=== PATIENT | male | born 1950 | race Caucasian/White ===

== ENCOUNTER 2017-03-27 19:36 | Emergency (ER) | payer OTHER ==
[~2017-03-27] VITALS: Ht 180.3 cm; Wt 118.9 kg
[~2017-03-27 19:36] MED LIST: ALLO300T2 PO; CARV3.125 PO; FOLI1 PO; ULTR50TA PO; ZOCO40TA PO
[2017-03-27 19:43] VITALS: BP 150/70; PULSE 69; RESP 16; TEMP 97.7; O2SAT 94
[2017-03-27 20:01] VITALS: BP 150/70; PULSE 69; RESP 16; TEMP 97.7; O2SAT 94
[2017-03-27] MEDS ORDERED: CETI-1 PO (20:10)
[2017-03-27] MEDS ORDERED: FOLI1TAB6 PO (20:10)
[2017-03-27] MEDS ORDERED: AMLO2.5T PO (20:10)
[2017-03-27] MEDS ORDERED: GABA300C5 PO (20:10)
[2017-03-27] MEDS ORDERED: SIMV20TA PO (20:10)
[2017-03-27] MEDS ORDERED: ALLO300T2 PO (20:10)
[2017-03-27] MEDS ORDERED: CARV3.12 PO (20:10)
--- NOTE | 2017-03-27 20:20 | PD ---
HPI Chief Complaint: Edema Time Seen by Provider: 20:03 Travel History International Travel<30 days: No Contact w/Intl Traveler<30days: No Traveled to known affect area: No History of Present Illness HPI 66 year-old male presents to the emergency department by private transportation the care of his spouse for evaluation of left lower extremity pain redness and swelling. Patient returned from a 1 week cruise 2 weeks ago and over the past 3 weeks has noticed persistent swelling and pain in the left lower extremity. Patient complains of redness and tenderness to the distal medial aspect of the left lower extremity. Patient has had these symptoms before. Patient has not followed up with his primary care provider over the last 2 weeks while at home. Patient denies any claudication. Patient states this week he's walk daily 2 miles per day without any cramping or discomfort that causes him to decrease his activity to rest and does not notice increased discomfort with extremity elevation. No prior history of claudication or peripheral vascular disease. Patient does have history of hypertension and dyslipidemia as well as previous colorectal cancer status post chemotherapy and colostomy. Patient denies any fever intermittently has chills. Patient's had no nausea no vomiting no abdominal pain no cramping no diarrhea. There is no ascending erythema or medial upper leg tenderness. Patient has not noticed any left groin lymphadenopathy. Patient was referred to the emergency department to have an ultrasound reportedly by his primary care provider. Also primary care provider has referred him to a vascular surgeon. Patient rates his discomfort 6/10 intensity. Patient is unable to identify exacerbating or alleviating factors. Patient is not diabetic. PFSH Past Medical History Narrative Medical Hypertension dyslipidemia peripheral neuropathy gouty arthritis colorectal cancer with colectomy colostomy and completion of chemotherapy; occasional alcohol use; nursing notes reviewed Cancer: Yes (prostate, colon) High Cholesterol: Yes Chemotherapy: Yes Diminished Hearing: No Gout: Yes Hypertension: Yes Implanted Vascular Access Dvce: Yes (right port) Radiation Therapy: Yes Past Surgical History Abdominal Surgery: Yes (colostomy) Social History Alcohol Use: Yes Tobacco Use: No Allergies-Medications (Allergen,Severity, Reaction): Coded Allergies: Sulfa (Verified Allergy, Severe, Hives, 03/27/17) Reported Meds & Prescriptions Reported Meds & Active Scripts Active Reported Zyrtec (Cetirizine HCl) 10 Mg Tablet 10 Mg PO DAILY Folic Acid 1 Mg Tablet 1 Mg PO DAILY Amlodipine (Amlodipine Besylate) 2.5 Mg Tab 2.5 Mg PO DAILY Gabapentin 300 Mg Cap 300 Mg PO TID Simvastatin 20 Mg Tab 20 Mg PO DAILY Carvedilol 3.125 Mg Tab 3.125 Mg PO BID Allopurinol 300 Mg Tab 300 Mg PO DAILY Review of Systems Except as stated in HPI: all other systems reviewed are Neg General / Constitutional: Positive: Chills, No: Fever HENT: No: Congestion Cardiovascular: No: Chest Pain or Discomfort Respiratory: No: Shortness of Breath, Pleuritic Pain Gastrointestinal: No: Nausea, Vomiting, Diarrhea, Abdominal Pain Genitourinary: No: Dysuria, Flank Pain Musculoskeletal: Positive: Edema, Pain (LLE), No: Myalgias, Limited ROM, Cramping Skin: No Rash, No Lumps Neurologic: No: Weakness Psychiatric: No: Anxiety Hematologic/Lymphatic: No: Lymph Node Enlargement Physical Exam Narrative GENERAL: Well-developed well-nourished obese male in no acute distress no respiratory distress SKIN: Warm and dry. HEAD: Normocephalic. EYES: No scleral icterus. No injection or drainage. NECK: Supple, trachea midline. No JVD or lymphadenopathy. CARDIOVASCULAR: Regular rate and rhythm without murmurs, gallops, or rubs. RESPIRATORY: Breath sounds equal bilaterally. No accessory muscle use. GASTROINTESTINAL: Abdomen soft, non-tender, nondistended. MUSCULOSKELETAL: No cyanosis, or edema. Left lower leg area of distal lower leg hyperpigmentation erythema medial aspect increased warmth tenderness with palpable dorsalis pedis pulse brisk capillary refill less than 2 seconds per digit intact range of motion no deformity, no ascending erythema and no left groin lymphadenopathy. BACK: Nontender without obvious deformity. No CVA tenderness. Data Data Last Documented VS Vital Signs Date Time Temp Pulse Resp B/P Pulse Ox O2 Delivery O2 Flow Rate FiO2 03/27/17 20:45 64 16 152/68 94 Room Air 03/27/17 20:01 97.7 Orders Us Leg Venous Doppler (03/27/17 ) MDM Medical Decision Making Medical Screen Exam Complete: Yes Emergency Medical Condition: Yes Medical Record Reviewed: Yes Interpretation(s) US LLE: no DVT FINDINGS: There is normal compressibility of the deep venous system from the inguinal region to the proximal calf. No echogenic clot is seen in the lumen of the common femoral, femoral, popliteal, and posterior tibial veins. There is a normal response of the venous system to proximal and distal augmentation and respiration. CONCLUSION: Normal examination. Bobo Noble MD on March 27, 2017 at 21:46 Board Certified Radiologist. This report was verified electronically. Differential Diagnosis cellulitis, dvt, lipodermatosclerosis, pad; no findings for limb ischemia Narrative Course Patient without fever tachycardia or tachypnea with tenderness to left lower leg with erythema and distally medial aspect tenderness and increased warmth no ascending erythema no left groin lymphadenopathy dorsalis pedis pulses 2+ to palpation no pallor or coolness of the limb sensory exam is intact and capillary refill is brisk and less than 2 seconds per digit ultrasound of the left lower extremity has been ordered if this is negative for DVT presumptively treat for focal cellulitis with suspicion of chronic Lipodermatosclerosis of the left lower extremity. No history of findings to raise suspicion for limits ischemia at this time as patient has had no claudication as patient has palpable pulses with brisk capillary refill on a warm pink left lower extremity. @ 9:55 PM patient informed of US results and stable for outpatient follow up with his PCP this week. Diagnosis Primary Impression: Cellulitis of leg without foot, left Additional Impression: Lipodermatosclerosis Referrals: Primary Care Physician 1 day Patient Instructions: General Instructions Additional Instructions: Follow up with your PCP; call office in the AM to schedule appointment apply warm moist compresses for comfort intermittently as needed Complete antibiotic as prescribed Take as needed as tolerated per package directions acetaminophen or ibuprofen for fever 100.4 F or greater or for pain Return to the ED for any concerns Med/Other Pt SpecificInfo: Prescription(s) given Scripts Doxycycline Hyclate 100 Mg [id number] Mg PO BID #14 CAP Ref 0 Prov:Eneida Castillo MD 03/27/17 Disposition: 01 DISCHARGE HOME Condition: Stable Eneida Castillo MD Mar 27, 2017 20:19
[2017-03-27 20:45] VITALS: BP 152/68; PULSE 64; RESP 16; O2SAT 94
--- NOTE | 2017-03-27 21:49 | RADRPT ---
EXAM DATE/TIME: 03/27/2017 21:02 [facility] COMPARISON: No previous studies available for comparison. INDICATIONS : Left leg swelling. MEDICAL HISTORY : Hypercholesterolemia. Hypertension. Carcinoma, prostate. Gout. Chemotherapy. Radiation therapy . SURGICAL HISTORY : Colostomy. Right port placement. ENCOUNTER: Initial ACUITY: 3 weeks PAIN SCORE: 7/10 LOCATION: Left leg. TECHNIQUE: Venous ultrasound of the leg was performed from the inguinal ligament to the proximal calf. Real-sonia e, color Doppler and spectral tracing, compression and augmentation techniques were used. FINDINGS: There is normal compressibility of the deep venous system from the inguinal region to the proximal ca lf. No echogenic clot is seen in the lumen of the common femoral, femoral, popliteal, and posterior tibial veins. There is a normal response of the venous system to proximal and distal augmentation an d respiration. CONCLUSION: Normal examination. Bobo Noble MD on March 27, 2017 at 21:46 Board Certified Radiologist. This report was verified electronically.
[2017-03-27] MEDS ORDERED: DOXY100C PO (21:57)
== END 2017-03-27 22:18 | disposition home or self-care (01) ==
LOC: PHED 19:36
DX: L03.116 Cellulitis of left lower limb (principal); I83.12 Varicose veins of left lower extremity with inflammation; I10 Essential (primary) hypertension; E78.5 Hyperlipidemia, unspecified; Z86.69 Personal history of other diseases of the nervous system and sense organs; Z87.39 Personal history of other diseases of the musculoskeletal system and connective tissue; Z85.038 Personal history of other malignant neoplasm of large intestine
CPT/HCPCS: 93971; 99284

== ENCOUNTER 2017-07-15 08:50 | Day surgery (SDC) | payer OTHER ==
[~2017-07-15] VITALS: Ht 180.3 cm; Wt 120.9 kg
[~2017-07-15 08:50] MED LIST changes: +AMLO2.5T PO; +CARV3.12 PO; -CARV3.125 PO; +CETI-1 PO; +DOXY100C PO; -FOLI1 PO; +FOLI1TAB6 PO; +GABA300C5 PO; +SIMV20TA PO; -ULTR50TA PO; -ZOCO40TA PO
[2017-07-15 09:43] VITALS: BP 187/93; PULSE 60; RESP 18; TEMP 98.8; O2SAT 97
[2017-07-15] MEDS ORDERED: tumeric PO (09:48)
[2017-07-15] MEDS ORDERED: VITA150T PO (09:48)
[2017-07-15] MEDS ORDERED: SODIUM CHLORIDE 0.9% FLUSH 10 ML FLUSH IV FLUSH PRN (10:00)
--- NOTE | 2017-07-15 11:28 | PD.VS.PN ---
Pre-operative Note Pre-operative diagnosis: L LE venous insufficiency Planned procedure: L GSV RFA Interval History: Pt has been feeling well and ready for surgery Labs: none needed Blood: none EKG: none Imaging: duplex reviewed - L AK insufficiency Orders: NPO Ancef 2g IV OCTOR Post-operative destination: [facility] Operative site marked: Yes Consent: Informed consent has been obtained from Topher Jonas. I have explained the procedure in detail and discussed the risks, benefits, and potential complications. All questions have been answered. Patient contact information: [phone] Kenan Fernandez MD Jul 15, 2017 11:27
[2017-07-15] MEDS ORDERED: LIDOCAINE 1%/EPINEPHrine 1:100,000 SOLN 20 ML VIAL ONE (11:34)
[2017-07-15] MEDS ORDERED: SODIUM BICARBONATE 8.4% INJ 50 ML ONE (11:34)
[2017-07-15] MEDS ORDERED: MIDAZOLAM HCL 5 MG/5 ML VIAL ONE ×2 (11:47→12:10)
[2017-07-15] MEDS ORDERED: fentaNYL CITRATE 250 MCG/5 ML AMP ONE (11:47)
[2017-07-15] MEDS ORDERED: ceFAZolin INJ 1,000 MG VIAL ONE (11:57)
[2017-07-15] MEDS ORDERED: LIDOCAINE HCL 2% 50 ML VIAL ONE (12:04)
--- NOTE | 2017-07-15 12:44 | HHI.PR ---
Immediate Post Op Note Procedure Date: Jul 15, 2017 Pre Op Diagnosis: L LE venous insufficiency Post Op Diagnosis: L LE venous insufficiency Surgeon: Kenan Fernandez Practice Or Student Teacher(s): none Procedure: L GSV RFA Findings: successful ablation Additional Information: no DVT at end of case Complications: none Specimen(s) removed: none Estimated blood loss: 10mL Anesthesia: MAC Drains: None Fluids: 300mL IVF Patient to: Other ([facility]) Patient Condition: Good Date/Time of Procedure: SEE SURGICAL CARE RECORD Kenan Fernandez MD Jul 15, 2017 12:44
--- NOTE | 2017-07-15 12:53 | CATHPROC ---
[place] HIS Report Study Information Study Number Admission Scheduled Start Study Start [id number] Jul 15 2017 8:50AM 07/15/2017 Jul 15 2017 11:44AM [place] Service Cath Endovascular Study Admit Source Facility Department Other [facility] - Education Research Analyst Physician and Clinical Staff Initial Kenan Aguirre Email Marketing Coordinator Tesha Arguello RN Other cathlab, cathlab Recorder Van Gutierrez RCIS(BS) Scrub Leoncio RangelRT(R) Equipment Time Highway Maintenance Crew Worker Description Size Mfg Part Number Used/Scraped CATHETER, FR7 CLOSURE FAST [id number] 11:44 BUNDLE-MEDTRONIC 100CM Used RFA 100CM *[id number] 11:44 BUNDLE-MEDTRONIC PACK, WINDOW SHADE ESTIMATOR CLOSUREFAST CFP *[id number] Used SHEATH, FR7 CLOSURE FAST [id number] 11:44 BUNDLE-MEDTRONIC 7CM Used MICROINTRODUCER *[id number] KIT, CLOSURE FAST TUMESCENT 11:44 MEDTRONIC TIK-01 *[id number] Used INFILTRATION KIT, CLOSURE FAST TUMESCENT 11:51 MEDTRONIC TIK-01 *[id number] Used INFILTRATION [id number] 12:04 NAMIC MANIFOLD, 4 PORT * Used *[id number] History: Current Medications Medication Dosage/Unit Route Frequency Last Date/Time Taken Statins (any) Beta Laura NORVASC History: Allergies Allergy Reaction Sulfa Hives Sulfa (Sulfonamide Antibiotics) Hives History: Risk Factors Family History of Hypertension Dyslipidemia Previous DE Previous Heart Failure Premature CAD Yes Yes No Yes No Prior Valve Prior PCI Prior CABG Surgery No No No Cerebrovascular Peripheral Artery Chronic Lung On Dialysis Diabetes Disease Disease Disease No No No No No History: Stress Tests Stress or Imaging Studies Performed No History: Other Current Smoker No Labs Hgb (g/dl) 11.60-17.00 Not Drawn Creatinine (mg/dl) 0.50-1.30 Not Drawn CPK-MB (ng/ML) 0.50-3.60 Not Drawn Medication Medication Total Dose (Bolus/Oral) Medication Total Dosage/Unit 1% XYLOCAINE 10 mL FENTANYL 250 mcg OXYGEN 2 l/min VERSED 8 mg Medications (Bolus/Oral) Medication Time Given Dosage/Unit Administered By Reason 07/15/2017 11:56:02 VERSED 2 mg Tesha Arguello AM 2 mg VERSED given in lab by Tesha Arguello, BAILEY in Right Forearm via Peripheral IV. Ordered by Kenan Fernandez. 07/15/2017 11:57:30 FENTANYL 50 mcg [place] Arguellonifer AM 50 mcg FENTANYL given in lab by Tesha Arguello RN in Right Forearm via Peripheral IV. Ordered by Kenan Lincoln. 07/15/2017 12:01:00 VERSED 2 mg Adamy, Tesha PM 2 mg VERSED given in lab by Tesha Arguello RN in Right Forearm via Peripheral IV. Ordered by Kenan Fernandez. 07/15/2017 12:01:49 OXYGEN 2 l/min Jos, Tesha PM 2 l/min OXYGEN given in lab by Tesha Arguello RN via Nasal. Ordered by Kenan Fernandez. 07/15/2017 12:02:48 FENTANYL 50 mcg Surajy, Tesha PM 50 mcg FENTANYL given in lab by Tesha Arguello RN in Right Forearm via Peripheral IV. Ordered by Kenan Lincoln. 07/15/2017 12:09:00 VERSED 1 mg Adamy, Tesha PM 1 mg VERSED given in lab by Tesha Arguello RN in Right Forearm via Peripheral IV. Ordered by Kenan Fernandez. 07/15/2017 12:10:52 FENTANYL 50 mcg Jos, Tesha PM 50 mcg FENTANYL given in lab by Tesha Arguello RN in Right Forearm via Peripheral IV. Ordered by Kenan Lincoln. 07/15/2017 12:17:15 1% XYLOCAINE 10 mL Kenan Fernandez PM 20 mL 1% XYLOCAINE given in lab by Kenan Fernandez in the Left Ankle via Subcutaneous. 07/15/2017 12:18:20 VERSED 2 mg Adamy, Tesha PM 2 mg VERSED given in lab by Tesha Arguello RN in Right Forearm via Peripheral IV. Ordered by Kenan Fernandez. 07/15/2017 12:19:02 FENTANYL 50 mcg Surajy, Tesha PM 50 mcg FENTANYL given in lab by Tesha Arguello RN in Right Forearm via Peripheral IV. Ordered by Kenan Lincoln. 07/15/2017 12:28:54 VERSED 1 mg Adamy, Tesha PM 1 mg VERSED given in lab by Tesha Arguello RN in Right Forearm via Peripheral IV. Ordered by Kenan Fernandez. 07/15/2017 12:29:03 FENTANYL 50 mcg Tesha Arguello PM 50 mcg FENTANYL given in lab by Tesha Arguello RN in Right Forearm via Peripheral IV. Ordered by Kenan Lincoln. Medication (Drip) Medication Time Given Dosage/Unit Concentration/Unit Diluent (ml) Solution 07/15/2017 12:03:00 ANCEF 2 g PM 2 g ANCEF given in lab by Tesha Arguello RN in Right Forearm via Peripheral IV. Ordered by Kenan Fernandez. 07/15/2017 11:43:52 IV Solutions 0 mL (IV) 500 NaCl .9 AM Patient arrived on IV Solutions given by cathlab cathlab in Right Forearm via Peripheral IV. Pump/Dr ip Flow = 20 ml/hr using NaCl .9. Ordered by Kenan Fernandez. Initial Case Assessment Cardiovascular HR Rhythm NIBP Chest Pain 72 nsr 152/81 0 Edema Present Skin color Skin None Normal Warm Dry Neurological State Oriented to time-place- Alert Moves all extremities person Respiration - General Respiration Rate SpO2 (%) (B/min) 15 98 Final Case Assessment Cardiovascular HR Rhythm NIBP Chest Pain 60 nsr 12/62 0 Edema Present Skin color Skin None Normal Warm Dry Neurological State Oriented to time-place- Alert Moves all extremities person Respiration - General Respiration Rate SpO2 (%) (B/min) 15 96 Chronological Log Time Study Chronological Log 11:43:43 Patient arrived via Bed. 11:43:44 Patient Name, D.O.B, / Armband Verified By R.N. 11:43:44 Consent signed by the physician and the patient and verified by the Education Research Analyst staff. 11:43:45 Pre-op and post- op instructions given; patient acknowledges understanding of instructions. 11:43:45 Verbal Stimulation=2 Physical Stimulation=2 Airway=2 Respiration=2 TOTAL=8. (0=absent, 1=li mited, 2=present) 11:43:48 Patient has been NPO for More than 6Hrs. 11:43:49 Skin Breakdown- none per patient 11:43:50 Patient Warmer Placed on the Table. 11:43:51 Stephen Prominences Protected 11:43:52 A # 20 IV was noted in the Forearm (right). Grade = 0 Patient arrived on IV Solutions given by cathlab, cathlab in Right Forearm via Peripheral IV. P ump/Drip Flow = 20 ml/hr 11:43:52 using NaCl .9. Ordered by Kenan Fernandez. 11:43:53 History and physical on the chart or being dictated. Vitals capture started with the following parameters, Patient=Adult, Interval=5 min, Initial Pr jolvii=955 mmHg, 11:47:45 Deflation Rate=5 mmHg Assessment: Initial Case, HR=72 BPM, Rhythm=nsr, VYUR=706/81 mmhg, Chest Pain=0, Edema=None, [place]=Normal, Skin = Warm, Dry 11:48:02 Neurological: State=Alert, Ox3, ALDANA Respiration: Resp=15 B/min, SpO2=98 % 11:48:30 HR=72 bpm, URLH=951/81 mmhg, SpO2=96 %, Pain=0, Yoanna=10, Minor=2 11:50:02 MD arrived. 11:53:35 HR=60 bpm, MQTQ=711/64 mmhg, SpO2=95.0 %, Resp=12 B/min, Pain=0, Yoanna=10, Minor=2 11:56:02 2 mg VERSED given in lab by Tesha Arguello RN in Right Forearm via Peripheral IV. Ordered by Kenan Fernandez. 11:57:26 Left leg prepped groin to ankle prepped with 2% chlorhexidine, and draped after a 3 min. wa iting time. 11:57:30 50 mcg FENTANYL given in lab by Tesha Arguello RN in Right Forearm via Peripheral IV. Ord ered by Kenan Fernandez. 11:58:34 HR=62 bpm, KIRD=831/63 mmhg, SpO2=95.0 %, Resp=38 B/min, Pain=0, Yoanna=10, Minor=2 12:01:00 2 mg VERSED given in lab by Tesha Arguello RN in Right Forearm via Peripheral IV. Ordered by Kenan Fernandez. 12:01:49 2 l/min OXYGEN given in lab by Tesha Arguello, BAILEY via Nasal. Ordered by Kenan Fernandez. 12:01:59 Reference ECG taken 12:02:48 50 mcg FENTANYL given in lab by Tesha Arguello, BAILEY in Right Forearm via Peripheral IV. Ord ered by Kenan Fernandez. 12:03:00 2 g ANCEF given in lab by Tesha Arguello RN in Right Forearm via Peripheral IV. Ordered Kenan Lund. 12:03:29 HR=61 bpm, QNWY=472/65 mmhg, SpO2=95.0 %, Resp=18 B/min, Pain=0, Yoanna=10, Minor=2 12:07:08 Verbal Stimulation=2 Physical Stimulation=2 Airway=2 Respiration=2 TOTAL=8. (0=absent, 1=li mited, 2=present) Time Out. Correct patient, correct procedure, correct physician, power injector loaded, or not loaded with contrast with 12:07:33 surgical team present. Time Out Concurred by MD and individual staff in procedure. 12:07:40 Case Start 12:09:00 1 mg VERSED given in lab by Tesha Arguello RN in Right Forearm via Peripheral IV. Ordered by Kenan Fernandez. 12:09:11 HR=60 bpm, XGMH=655/61 mmhg, SpO2=95.0 %, Resp=13 B/min, Pain=0, Yoanna=10, Minor=2 12:10:52 50 mcg FENTANYL given in lab by Tesha Arguello RN in Right Forearm via Peripheral IV. Ord ered by Kenan Fernandez. 12:13:31 HR=60 bpm, DQQZ=752/56 mmhg, SpO2=95.0 %, Resp=19 B/min, Pain=0, Yoanna=10, Minor=2 12:17:15 20 mL 1% XYLOCAINE given in lab by Kenan Fernandez in the Left Ankle via Subcutaneous. A SHEATH, FR7 CLOSURE FAST MICROINTRODUCER 7CM was advanced into the LGSV using the Percutabearou s 12:18:16 technique. 12:18:20 2 mg VERSED given in lab by Tesha Arguello, BAILEY in Right Forearm via Peripheral IV. Ordered by Kenan Fernandez. 12:18:32 HR=60 bpm, GBPD=389/58 mmhg, SpO2=95.0 %, Resp=17 B/min, Pain=0, Yoanna=10, Minor=2 12:18:54 A CATHETER, FR7 CLOSURE FAST RFA 100CM 100CM was advanced over a wire. contrast was used fo r injections. 12:19:02 50 mcg FENTANYL given in lab by Tesha Arguello RN in Right Forearm via Peripheral IV. Ord ered by Kenan Fernandez. 12:23:31 HR=67 bpm, VLUK=211/65 mmhg, SpO2=94.0 %, Resp=15 B/min, Pain=0, Yoanna=10, Minor=2 12:24:47 Tumescent (2.5 Sodium bicarb, 1% lidocaine with epi, in .9 NS) injected subcutaneous multip le times Left LE. 12:28:54 1 mg VERSED given in lab by Tesha Arguello RN in Right Forearm via Peripheral IV. Ordered by Kenan Fernandez. 12:29:03 50 mcg FENTANYL given in lab by Tesha Arguello RN in Right Forearm via Peripheral IV. Ord ered by Kenan Fernandez. 12:29:07 HR=67 bpm, HPIK=289/68 mmhg, SpO2=96.0 %, Resp=11 B/min, Pain=0, Yoanna=10, Minor=2 12:30:27 Ablation in progress. 12:34:10 HR=59 bpm, LMPX=481/61 mmhg, SpO2=95.0 %, Resp=17 B/min, Pain=0, Yoanna=10, Minor=2 12:35:13 Ablation in progress. 12:38:31 HR=60 bpm, FQAH=144/62 mmhg, SpO2=95.0 %, Resp=16 B/min, Pain=0, Yoanna=10, Minor=2 12:38:41 Ablation complete. 12:38:56 Sheath removed; pressure applied to access site. 12:38:57 Case End Assessment: Final Case, HR=60 BPM, Rhythm=nsr, NIBP=12/62 mmhg, Chest Pain=0, Edema=None, [place] r=Normal, Skin = Warm, Dry 12:39:57 Neurological: State=Alert, Ox3, ALDANA Respiration: Resp=15 B/min, SpO2=96 % 12:40:24 Catheter(s) removed without difficulty 12:40:26 No case complications noted. 12:40:27 Cine recording checked. 12:40:28 Bedside Report will be given. 12:40:29 Holding Area notified of successful intervention. 12:40:31 Contrast Scanned 12:40:34 Verbal Stimulation=2 Physical Stimulation=2 Airway=2 Respiration=2 TOTAL=8. (0=absent, 1=l imited, 2=present) 12:40:46 Sterile dressing applied to site. Left LE wrapped wtih melissa bandages foot to groin. 12:43:30 HR=61 bpm, WHAA=104/69 mmhg, SpO2=95.0 %, Resp=15 B/min, Pain=0, Yoanna=10, Minor=2 End Study - Contrast Media Used In Study Contrast Total Opened (mL) Total Used (mL) Total Wasted (mL) Unspecified 0 0 0 End Study - Radiation Exposure Fluoro Time (minutes) 0.0 End Study - Patient Disposition Complications Transferred To Interventional Outcome No Education Research Analyst Holding successful
[2017-07-15] MEDS ORDERED: ONDANSETRON HCL 4 MG/2 ML VIAL ONE (15:13)
[2017-07-15] MEDS ORDERED: SODIUM CHLORIDE 0.9% FLUSH 10 ML FLUSH IV FLUSH SCH (21:00)
--- NOTE | 2017-07-16 11:32 | MP ---
cc: KENAN FERNANDEZ MD DATE OF SURGERY 07/15/2017 PREOPERATIVE DIAGNOSIS Left lower exam venous insufficiency POSTOPERATIVE DIAGNOSIS Left lower exam venous insufficiency PROCEDURE Left great saphenous vein radiofrequency ablation MEDICATIONS Kenan Fernandez MD ANESTHESIA Local with sedation INDICATION Mr. Jonas is a gentleman with left lower venous insufficiency who has failed compression therapy. Preoperative imaging suggests he had adequate anatomy for venous ablation. After a thorough discussion was held with the patient and his , he was offered a venous ablation. DESCRIPTION OF THE PROCEDURE Informed consent obtained from the patient. He was taken to the operating room, placed supine on the operating room table and an appropriate time-out was taken to ensure the patient's identity, the operative site and planned procedure. The administration of 2 grams of Ancef was initiated prior to the skin incision and will be discontinued after a single preoperative dose. Everyone in the room agreed with the time-out and we proceeded. His left leg was prepped and draped and with the patient in reverse Trendelenburg position, local anesthesia was infiltrated and then a 21 gauge micropuncture needle was used to access the left great saphenous vein below the knee. This was exchanged using Seldinger technique for a 7-Tongan sheath through which a venous closure fast catheter was introduced. The catheter was positioned 2 cm in the saphenofemoral junction. The patient was then placed in Trendelenburg position. The saphenous vein was anesthetized with nona-saphenous tumescence and the vein was segmentally ablated. At the completion, ultrasound showed no DVT. The catheter and sheath were removed, pressure was held for hemostasis. There were no complications. I was present and scrubbed for the entire procedure. Kenan Fernandez MD RJCharli/DJL /5:55 PM /11:21 AM
== END 2017-07-15 16:00 | disposition home or self-care (01) ==
LOC: HDIC 08:50 → HCAT 08:50
PROVIDERS: ATTEND Surgery
DX: I87.2 Venous insufficiency (chronic) (peripheral) (principal); I10 Essential (primary) hypertension; I73.9 Peripheral vascular disease, unspecified
CPT/HCPCS: 36475; C1769; J0690; J2250; J2405; J3010